=== PATIENT | female | born 1985 | race Caucasian/White ===

== ENCOUNTER 2020-08-18 10:56 | Day surgery (SDC) | payer BC ==
[2020-08-15 12:45] LABS: HEMATOCRIT 38.9 % (36.0-47.0); MEAN CORPUSCULAR HGB CONC 33.5 g/dL (32.0-36.0); MEAN CORPUSCULAR VOLUME 87 fl (80-97); PLATELET COUNT 217 10^3/uL (150-450); RED BLOOD COUNT 4.49 10^6/uL (3.72-5.28); RED CELL DISTRIBUTION WIDTH 12.7 % (11.5-14.0); WHITE BLOOD COUNT 4.4 10^3/uL (4.0-10.5)
[2020-08-15 12:53] LABS: AMORPHOUS SEDIMENT,URINE TRACE /HPF; APPEARANCE,URINE CLOUDY; BILIRUBIN,URINE NEGATIVE (NEGATIVE); COLOR,URINE YELLOW; GLUCOSE, URINE NEGATIVE (NEGATIVE); KETONES,URINE NEGATIVE (NEGATIVE); LEUKOCYTE ESTERASE,URINE MODERATE (NEGATIVE); NITRITE,URINE NEGATIVE (NEGATIVE); PROTEIN,URINE NEGATIVE (NEGATIVE); URINE SPECIFIC GRAVITY 1.017; UROBILINOGEN,URINE NEGATIVE mg/dL (<2.0)
[2020-08-15 13:10] LABS: ALBUMIN 4.5 g/dL (3.5-5.0); ALKALINE PHOSPHATASE 50 U/L (38-126); ANION GAP 8 (5-19); ASPARTATE AMINO TRANSFERASE 27 U/L (14-36); BILIRUBIN,DIRECT 0.1 mg/dL (0.0-0.4); BILIRUBIN,TOTAL 0.7 mg/dL (0.2-1.3); BLOOD UREA NITROGEN 11 mg/dL (7-20); CALCIUM 9.7 mg/dL (8.4-10.2); CARBON DIOXIDE 28 mmol/L (22-30); CHLORIDE 104 mmol/L (98-107); GLUCOSE 97 mg/dL (75-110); POTASSIUM 3.9 mmol/L (3.6-5.0); TOTAL PROTEIN 7.3 g/dL (6.3-8.2)
[~2020-08-18 10:56] MED LIST: CEFAZOLIN 1 GM/D5W RTU 1 GM/50 ML RTUPB IV ONE; CEFAZOLIN 1 GM/D5W RTU 1 GM/50 ML RTUPB IV PRN; EPHEDRINE SULFATE INJ 50 MG/1 ML AMPULE ONE; FENTANYL CITRATE INJ/PF 250 MCG/5 ML AMPULE ONE; HYDROMORPHONE HCL INJ/PF 2 MG/ML AMPULE ONE; MIDAZOLAM 2 MG/2 ML INJ ONE; PROPOFOL INJ 200 MG/20 ML VIAL IV ONE; SUGAMMADEX SODIUM 200 MG/2 ML SDV IV ONE
[2020-08-18] MEDS ORDERED: DIPHENHYDRAMINE HCL 50 MG/ML VIAL ONE (11:02)
[2020-08-18] MEDS ORDERED: ONDANSETRON HCL INJ/PF 4 MG/2 ML SDV ONE (11:02)
[2020-08-18] MEDS ORDERED: ROCURONIUM BROMIDE INJ 50 MG/5 ML VIAL IV ONE (11:02)
[2020-08-18] MEDS ORDERED: METOCLOPRAMIDE HCL INJ/PF 10 MG/2 ML SDV ONE (11:02)
[2020-08-18] MEDS ORDERED: KETOROLAC TROMETHAMINE 60 MG/2 ML SDV ONE (11:02)
[2020-08-18] MEDS ORDERED: SUCCINYLCHOLINE CHLORIDE INJ 200 MG/10 ML VIAL ONE (11:02)
[2020-08-18] MEDS ORDERED: DEXAMETHASONE SOD PHOSPHATE INJ 4 MG/1 ML VIAL ONE (11:02)
[2020-08-18] MEDS ORDERED: FENTANYL CITRATE INJ/PF 100 MCG/2 ML AMPUL IV PRN ×2 (13:34)
[2020-08-18] MEDS ORDERED: OXYCODONE-ACETAMINOPHEN 5-325 MG TABLET PO PRN ×3 (13:34→14:33)
[2020-08-18] MEDS ORDERED: PROMETHAZINE HCL INJ 25 MG/1 ML VIAL IV PRN ×3 (13:34→14:33)
[2020-08-18] MEDS ORDERED: MORPHINE SULFATE 10 MG/ML INJ IV PRN ×2 (13:34→14:33)
[2020-08-18] MEDS ORDERED: MEPERIDINE HCL/PF INJ 25 MG/1 ML DISP.SYRIN IV PRN (13:34)
[2020-08-18] MEDS ORDERED: DIPHENHYDRAMINE HCL 50 MG/ML VIAL IV PRN (13:34)
[2020-08-18] MEDS ORDERED: ACETAMINOPHEN 325 MG TABLET PO PRN (14:33)
[2020-08-18] MEDS ORDERED: RINGERS SOLUTION,LACTATED 1,000 ML IV PRN (14:33)
[2020-08-18] MEDS ORDERED: DIPH/PERTUSS(ACELL)/TETANUS VAC/PF 0.5 ML SYR (>=10YO) IM PRN (14:33)
[2020-08-18] MEDS ORDERED: OXYTOCIN/0.9 % SODIUM CHLORIDE 30 UNIT/500 ML RTUINJ IV PRN (14:33)
[2020-08-18] MEDS ORDERED: MEASLES,MUMPS&RUBELLA VACC/PF 0.5 ML VIAL SUBCUT PRN (14:33)
[2020-08-18] MEDS ORDERED: ACETAMINOPHEN 1,000 MG/100 ML RTUPB IV PRN (14:33)
--- NOTE | 2020-08-18 14:43 | Operative Report ---
Operative Report DATE OF SURGERY: 08/18/20 PREOPERATIVE DIAGNOSIS: History of endometriosis, abnormal uterine bleeding, pe lvic pain POSTOPERATIVE DIAGNOSIS: Same OPERATION: Robotic assisted total laparoscopic hysterectomy with bilateral salpingectomy and lysis of adhesions SURGEON: THOMAS COLON 1ST ASSISTANT PROFESSOR OF SOCIOLOGY: JOHNNIE MARIEE ANESTHESIA: GA TISSUE REMOVED OR ALTERED: Uterus cervix bilateral fallopian tubes COMPLICATIONS: None ESTIMATED BLOOD LOSS: 100 cc INTRAOPERATIVE FINDINGS: The patient cervix was very stenotic and hard. This made getting the uterine manipulator through to the uterus impossible. Uterine manipulator was placed as a guide for the colpotomy PROCEDURE: Patient was taken to the operating room prepared and draped in normal sterile fashion in dorsolithotomy position. Under sterile conditions a Feng catheter was placed to gravity. Speculum was placed into the vagina and the cervix was grasped on the anterior lip with a single-tooth tenaculum. The cervix was attempted to be dilated to accommodate the V care however the cervix was so s tenotic that I was not able to pass the uterine sound or the uterine dilators through the cervix the internal cervical os. Therefore the uterine manipulator was placed around the exterior cervix in order to have as a guide for the colpotomy. The tip of the uterine manipulator was with in the cervical canal at best. gloves were changed and attention was turned to the upper portion of the case. A 2-1/2 cm umbilical skin incision was made 11 blade and this was carried through to the underlying layer of fascia with the same 11 blade. It was grasped to Ceci's acted with Ryan's. New cavity was entered bluntly. A GelPort was placed in a normal fashion the camera port and air seal in the appropriate locations. Wood was then inflated with approximately 2 L of CO2 gas. The camera was then introduced into the peritoneal cavity through the camera port and the patient was placed in steep Trendelenburg. The above findings were noted. There was no evidence of leilani endometriosis implants . under direct visualization two 5 mm ports were placed approximately 10 cm on either side of the umbilicus. The robot was then docked with the vessel sealer placed on the patient's left and the monopolar scissors placed placed on the patient's right. I then unscrubbed and set at the robotic console beginning with the left adnexa fallopian tube was transected from the uterus using the vessel sealer and monopolar scissors as needed. The fallopian tube was then removed through the assistance port. The ovarian ligament was then transected using the vessel sealer. The uterine artery was skeletonized using blunt dissection and ligated using the vessel sealer down to the level of the external cervical os. The bladder flap was then begun using monopolar scissors and blunt dissection over the V care cup noted through the mucosa. Attention was then turned to the right adnexa where the fallopian tube was transected in a similar fashion. The utero- ovarian ligament was transected using the vessel sealer. The Uterine artery was then transected using the vessel sealer and skeletonized using blunt dissection. The vessel sealer was again used to completely transect the uterine artery down to the level of the external cervical os. The bladder flap was completed using similar sharp and blunt dissection. Once the bladder was felt to be adequately away from the lower uterine segment, the colpotomy was begun on the anterior aspect of the cervix following the outline of the V care cup mucosa. The cup was followed in a circumferential fashion completely around the cervix estimate was completely freed. The specimen was then removed through the vaginal defect. The instruments were then changed to a Severo needle bus driver/monitor and pro-grasp. AV lock needle was introduced through the assistance port. The lock needle was used to close the vaginal cuff and hemostasis. The needle was then removed through the assistance port. The peritoneal cavity was carefully inspected the ureters were noted to both be peristalsing and there was no signs of hydroureter. An inspection of the peritoneal cavity was performed once more for endometriosis implants and none were found . It was noted that there was some filmy adhesions of the descending bowel to the left pelvic sidewall and these were carefully dissected away bluntly . the robot was then undocked. The fascia was closed at the umbilical skin incision seen 0 Vicryl 3 skin incisions were closed using 4-0 Vicryl. Sponge lap and needle counts were correct x2 and the patient was taken to recovery in stable condition.
[2020-08-18] MEDS ORDERED: ACETAMINOPHEN 1,000 MG/100 ML RTUPB IV ONE (14:54)
[2020-08-18] MEDS ORDERED: FENTANYL CITRATE INJ/PF 100 MCG/2 ML AMPUL ONE (14:54)
[2020-08-18] MEDS: FENTANYL CITRATE INJ/PF 100 MCG/2 ML AMPUL IV PRN ×2 (14:57→15:02)
[2020-08-18] MEDS ORDERED: OXYCODONE-ACETAMINOPHEN 5-325 MG TABLET ONE (15:13)
[2020-08-18] MEDS: OXYCODONE-ACETAMINOPHEN 5-325 MG TABLET PO PRN ×2 (17:29→21:37)
[2020-08-18] MEDS: DOCUSATE SODIUM 100 MG CAPSULE PO SCH (17:29)
[2020-08-18] MEDS: SIMETHICONE 80 MG TAB.CHEW PO PRN (17:30)
[2020-08-18] MEDS: KETOROLAC TROMETHAMINE INJ/PF 30 MG/1 ML SDV IV SCH (22:59)
[2020-08-19] MEDS: OXYCODONE-ACETAMINOPHEN 5-325 MG TABLET PO PRN ×2 (01:53→06:01)
[2020-08-19] MEDS: KETOROLAC TROMETHAMINE INJ/PF 30 MG/1 ML SDV IV SCH (05:12)
[2020-08-19] MEDS: SIMETHICONE 80 MG TAB.CHEW PO PRN (05:13)
[2020-08-19 07:15] LABS: HEMATOCRIT 35.7 % (36.0-47.0); HEMOGLOBIN 12.1 g/dL (12.0-15.5); MEAN CORPUSCULAR HEMOGLOBIN 29.2 pg (27.0-33.4); MEAN CORPUSCULAR HGB CONC 33.9 g/dL (32.0-36.0); MEAN CORPUSCULAR VOLUME 86 fl (80-97); PLATELET COUNT 217 10^3/uL (150-450); RED BLOOD COUNT 4.15 10^6/uL (3.72-5.28); RED CELL DISTRIBUTION WIDTH 12.3 % (11.5-14.0); WHITE BLOOD COUNT 8.5 10^3/uL (4.0-10.5)
[2020-08-19] MEDS ORDERED: INFLUENZA QUAD (6MOS+) 2020-21 VAC 0.5 ML SYR IM ONE (08:00)
[2020-08-19 08:21] VITALS: BP 116/70
--- NOTE | 2020-08-19 08:24 | PDOC DISCHARGE SUMMARY ---
Impression - Admit/DC Date/PCP Admission Date/Primary Care Provider: THOMAS COLON MD Discharge Date: 08/19/20 - Discharge Diagnosis (1) Endometriosis Is this a current diagnosis for this admission?: Yes (2) Abnormal uterine and vaginal bleeding, unspecified Is this a current diagnosis for this admission?: Yes (3) Pelvic pain Is this a current diagnosis for this admission?: Yes - Assessment Summary: pt underwent a RATLH w/ b/l salpingectomy and ZAHRAA. She has had an unremarkable post oeprative course. voiding well and ambulating with no difficulty - Additional Information Resuscitation Status: Full Code Discharge Diet: As Tolerated Discharge Activity: Balance Activity w/Rest, No Driving, No Lifting Over 10 Pounds, No Lifting/Push/Pulling, Pelvic Rest, No tub bath, Walk Frequently Referrals: THOMAS COLON MD [Primary Care Provider] - Prescriptions: Oxycodone HCl/Acetaminophen [Percocet 5-325 mg Tablet] 1 tab PO Q4HP PRN #30 tablet PRN Reason: Docusate Sodium [Colace 100 mg Capsule] 100 mg PO BID #60 capsule Ibuprofen [Motrin 800 mg Tablet] 800 mg PO Q8H #60 tablet Home Medications: Aspirin/Acetaminophen/Caffeine [Excedrin Migraine Geltab] 1 each PO PRN PRN 08/18/20 Docusate Sodium [Colace 100 mg Capsule] 100 mg PO BID #60 capsule 08/19/20 Ibuprofen [Motrin 800 mg Tablet] 800 mg PO Q8H #60 tablet 08/19/20 Oxycodone HCl/Acetaminophen [Percocet 5-325 mg Tablet] 1 tab PO Q4HP PRN #30 tablet 08/19/20 History of Present Illiness History of Present Illness: CAMILO CUELLAR is a 35 year old female Physical Exam - Physical Exam Vital Signs: Temp Pulse Resp BP Pulse Ox 98.3 F 51 L 19 139/77 H 100 08/19/20 06:16 08/19/20 06:16 08/19/20 06:16 08/19/20 06:16 08/19/20 06:16 Intake & Output 08/18/20 08/19/20 08/20/20 06:59 06:59 06:59 Intake Total 2490 Output Total 800 Balance 1690 Weight 63.9 kg Results Laboratory Results: WBC 8.5 10^3/uL (4.0-10.5) 08/19/20 06:30 RBC 4.15 10^6/uL (3.72-5.28) 08/19/20 06:30 Hgb 12.1 g/dL (12.0-15.5) 08/19/20 06:30 Hct 35.7 % (36.0-47.0) L 08/19/20 06:30 MCV 86 fl (80-97) 08/19/20 06:30 MCH 29.2 pg (27.0-33.4) 08/19/20 06:30 MCHC 33.9 g/dL (32.0-36.0) 08/19/20 06:30 RDW 12.3 % (11.5-14.0) 08/19/20 06:30 Plt Count 217 10^3/uL (150-450) 08/19/20 06:30 Sodium 139.6 mmol/L (137-145) 08/15/20 11:47 Potassium 3.9 mmol/L (3.6-5.0) 08/15/20 11:47 Chloride 104 mmol/L (98-107) 08/15/20 11:47 Carbon Dioxide 28 mmol/L (22-30) 08/15/20 11:47 Anion Gap 8 (5-19) 08/15/20 11:47 BUN 11 mg/dL (7-20) 08/15/20 11:47 Creatinine 0.66 mg/dL (0.52-1.25) 08/15/20 11:47 Est GFR ( Amer) > 60 (>60) 08/15/20 11:47 Est GFR (MDRD) Non-Af > 60 (>60) 08/15/20 11:47 Glucose 97 mg/dL (75-110) 08/15/20 11:47 Calcium 9.7 mg/dL (8.4-10.2) 08/15/20 11:47 Total Bilirubin 0.7 mg/dL (0.2-1.3) 08/15/20 11:47 Direct Bilirubin 0.1 mg/dL (0.0-0.4) 08/15/20 11:47 Neonat Total Bilirubin Not Reportable 08/15/20 11:47 Neonat Direct Bilirubin Not Reportable 08/15/20 11:47 Neonat Indirect Bili Not Reportable 08/15/20 11:47 AST 27 U/L (14-36) 08/15/20 11:47 ALT 25 U/L (<35) 08/15/20 11:47 Alkaline Phosphatase 50 U/L (38-126) 08/15/20 11:47 Total Protein 7.3 g/dL (6.3-8.2) 08/15/20 11:47 Albumin 4.5 g/dL (3.5-5.0) 08/15/20 11:47 Urine Color YELLOW 08/15/20 11:47 Urine Appearance CLOUDY 08/15/20 11:47 Urine pH 7.0 (5.0-9.0) 08/15/20 11:47 Ur Specific [place] 1.017 08/15/20 11:47 Urine Protein NEGATIVE mg/dL (NEGATIVE) 08/15/20 11:47 Urine Glucose (UA) NEGATIVE mg/dL (NEGATIVE) 08/15/20 11:47 Urine Ketones NEGATIVE mg/dL (NEGATIVE) 08/15/20 11:47 Urine Blood NEGATIVE (NEGATIVE) 08/15/20 11:47 Urine Nitrite NEGATIVE (NEGATIVE) 08/15/20 11:47 Urine Bilirubin NEGATIVE (NEGATIVE) 08/15/20 11:47 Urine Urobilinogen NEGATIVE mg/dL (<2.0) 08/15/20 11:47 Ur Leukocyte Esterase MODERATE (NEGATIVE) H 08/15/20 11:47 Urine WBC (Auto) 5 /HPF 08/15/20 11:47 Urine Bacteria (Auto) TRACE /HPF 08/15/20 11:47 Squamous Epi Cells Auto 9 /HPF 08/15/20 11:47 Amorphous Sediment Auto TRACE /HPF 08/15/20 11:47 Urine Mucus (Auto) MANY /LPF 08/15/20 11:47 Urine Ascorbic Acid NEGATIVE (NEGATIVE) 08/15/20 11:47 Urine HCG, Qual NEGATIVE (NEGATIVE) 08/18/20 11:20 COVID-19 Source See comment 08/15/20 11:51 COVID-19 (ARMANDO) Not Detected (Not Detect) 08/15/20 11:51 Blood Type A NEGATIVE 08/15/20 11:47 Antibody Screen NEGATIVE 08/15/20 11:47 Stroke Is this a Stroke Patient?: No Acute Heart Failure Is this a Heart Failure Patient?: No
[2020-08-19] MEDS ORDERED: PRENATAL VITAMIN W DHA CAPSULE PO SCH (10:00)
[2020-08-19] MEDS: DOCUSATE SODIUM 100 MG CAPSULE PO SCH (10:13)
[2020-08-24] MEDS ORDERED: IBUPROFEN 800 MG TABLET PO SCH
== END 2020-08-19 10:40 | disposition home or self-care (01) ==
LOC: OROUT 10:56 → 2N 16:01 → OROUT 08-19 10:40
PROVIDERS: ATTEND Obstetrics & Gynecology
DX: N80.0 Endometriosis of uterus (principal); N93.9 Abnormal uterine and vaginal bleeding, unspecified; R10.2 Pelvic and perineal pain; N72 Inflammatory disease of cervix uteri; N87.9 Dysplasia of cervix uteri, unspecified; Z23 Encounter for immunization; Z20.828 Contact with and (suspected) exposure to other viral communicable diseases; N92.6 Irregular menstruation, unspecified; J45.909 Unspecified asthma, uncomplicated; Z79.899 Other long term (current) drug therapy; Z98.890 Other specified postprocedural states
CPT/HCPCS: 86900; 86901; 36415 ×2; 86850; 85027 ×2; 81025; 80053; 81001; 88307 ×2; 90686; 94799; 00840; 58571; G0008; C1758; A4649; U0003; J2250; J0690; J3490 ×2; J1100; J1200; J1885 ×3; J3010 ×2; J2765; J0330; J2405; J2704; J0131; C9803; 840; 87635; 90471; J1170